=== PATIENT | female | born 1975 ===

== ENCOUNTER 2017-01-11 16:12 | Inpatient (IN) | payer MEDICAID ==
[~2017-01-11] VITALS: Ht 157.5 cm; Wt 79.5 kg
[2017-01-11] MEDS ORDERED: VENL-193 PO (18:08)
[2017-01-11 18:09] VITALS: BP 132/79
[2017-01-11] MEDS ORDERED: VENL-67 PO (18:24)
[2017-01-11] MEDS ORDERED: TRAZ-144 PO (18:24)
[2017-01-11] MEDS ORDERED: VIST50 PO (18:24)
[2017-01-11] MEDS ORDERED: LORazepam 2 MG TABLET PO PRN (18:30)
[2017-01-11] MEDS ORDERED: ZOLPIDEM TARTRATE 10 MG TABLET PO PRN (18:30)
[2017-01-11 19:07] VITALS: BP 126/76
[2017-01-12 07:04] VITALS: BP 128/74
[2017-01-12 08:20] VITALS: BP 107/65
[2017-01-12 08:44] LABS: BASOPHILS % (AUTO) 0.2 % (0.0-2.0); EOSINOPHILS % (AUTO) 1.9 % (1.0-6.0); HEMATOCRIT 40.2 % (36-46); HEMOGLOBIN 13.8 g/dL (12.0-16.0); LYMPHOCYTES % (AUTO) 25.4 % (22.0-44.0); MEAN CORPUSCULAR HEMOGLOBIN 32.1 pg (26.0-34.0); MEAN CORPUSCULAR HGB CONC 34.2 G/dL (31.0-37.0); MEAN CORPUSCULAR VOLUME 94 fL (80-100); MONOCYTES # (AUTO) 0.3 K/uL (0.1-1.0); MONOCYTES % (AUTO) 4.1 % (2.0-9.0); NEUTROPHILS # (AUTO) 5.3 K/uL (1.8-7.7); NEUTROPHILS % (AUTO) 68.4 % (40.0-70.0); PLATELET COUNT (AUTO) 280 K/uL (150-450); RED BLOOD CELL COUNT(AUTO) 4.29 MIL/uL (4.00-5.20); RED CELL DISTRIBUTION WIDTH 12.4 % (11.5-14.5); WHITE BLOOD COUNT (AUTO) 7.7 K/uL (4.5-11.0)
[2017-01-12 09:15] LABS: ALANINE AMINOTRANSFERASE 41 U/L (12-78); ALBUMIN 4.1 g/dL (3.4-5.0); ANION GAP 9 mmol/L (8-16); ASPARTATE AMINOTRANSFERASE 21 U/L (15-37); BILIRUBIN,TOTAL 0.7 mg/dL (0.1-1.0); CALCIUM, TOTAL 8.9 mg/dL (8.8-10.5); CARBON DIOXIDE 28 mmol/L (22-29); CHLORIDE 101 mmol/L (98-107); CREATININE 0.86 mg/dL (0.60-1.30); GLOMERULAR FILTR. RATE CALC > 60 mL/min (>60); POTASSIUM 4.1 mmol/L (3.5-5.1); SODIUM SERUM 138 mmol/L (136-145); THYROID STIMULATING HORMONE 3.12 uIU/mL (0.36-3.74); TOTAL PROTEIN, SERUM 7.2 g/dL (6.4-8.2); UREA NITROGEN, BLOOD 13 mg/dL (7-18)
[2017-01-12 16:05] VITALS: BP 129/64
[2017-01-12 16:07] VITALS: BP 129/64
[2017-01-12] MEDS ORDERED: TraZODone HCL 100 MG TABLET PO SCH (21:00)
[2017-01-13] MEDS ORDERED: VENLAFAXINE HCL 150 MG ER CAPSULE PO SCH (09:00)
[2017-01-13 09:41] LABS: HEMOGLOBIN A1C 4.7 % (4.5-6.2)
[2017-01-13 09:44] LABS: CHOL/HDL RATIO 3.8 (3.9-5.7); CREATINE KINASE, TOTAL 66 U/L (26-192); THYROID STIMULATING HORMONE 3.62 uIU/mL (0.36-3.74)
[2017-01-13 10:40] LABS: APPEARANCE,URINE TURBID (CLEAR); GLUCOSE, URINE (UA) NEGATIVE (NEGATIVE); KETONES,URINE 15 mg/dL (NEGATIVE); LEUKOCYTE ESTERASE ,URINE NEGATIVE (NEGATIVE); OCCULT BLOOD,URINE NEGATIVE (NEGATIVE); PROTEIN,URINE NEGATIVE (NEGATIVE)
[2017-01-13 10:43] LABS: ADD UA MICROSCOPIC YES
[2017-01-13 10:48] LABS: RBC,URINE None Seen /HPF (0-2)
[2017-01-13 10:49] LABS: SQUAMOUS EPITHELIAL CELL,UR Moderate /LPF (None Seen); WBC,URINE None Seen /HPF (0-5)
[2017-01-13 10:50] LABS: AMORPHOUS SEDIMENT,UR Many /LPF (None Seen)
[2017-01-13] MEDS ORDERED: LOPERAMIDE HCL 2 MG CAPSULE PO PRN (14:45)
[2017-01-13 16:19] VITALS: BP 110/78
[2017-01-13] MEDS ORDERED: MAGNESIUM OXIDE 400 MG TABLET PO SCH (17:00)
[2017-01-13] MEDS ORDERED: MAGN400T25 PO (17:42)
[2017-01-13] MEDS ORDERED: VITAD1000 PO (17:42)
[2017-01-14 07:55] LABS: HEPATITIS Bs ANTIGEN SCREEN P Negative (Negative); HEPATITIS C AB SCREEN <0.1 s/co ratio (0.0-0.9)
[2017-01-14] MEDS ORDERED: CHOLECALCIFEROL (VIT D3) 1,000 UNITS TABLET PO SCH (09:00)
== END 2017-01-13 18:15 | disposition home or self-care (01) | DRG 885 ==
LOC: B3A 18:31
PROVIDERS: ADMIT Psychiatry & Neurology Psychiatry; ATTEND Psychiatry & Neurology Psychiatry
DX: F33.2 Major depressive disorder, recurrent severe without psychotic features (principal); R45.851 Suicidal ideations; F12.90 Cannabis use, unspecified, uncomplicated; Z83.3 Family history of diabetes mellitus; Z91.5 Personal history of self-harm; Z63.9 Problem related to primary support group, unspecified; Z72.89 Other problems related to lifestyle; B00.9 Herpesviral infection, unspecified
CPT/HCPCS: 80074; 80307; 82306; 83036; 83735; 84439; 84443; 87081